=== PATIENT | female | born 1965 | race Hispanic/Latino ===

== ENCOUNTER 2020-02-22 01:00 | Emergency (ER) | payer SELFPAY ==
[~2020-02-22] VITALS: Ht 154.9 cm; Wt 49.9 kg
[2020-02-22] MEDS ORDERED: ASPIRIN 81 MG CHEW TAB PO ONE (01:45)
== END 2020-02-22 01:20 | disposition left against medical advice (07) ==
LOC: ER 01:00
DX: S89.92XA Unspecified injury of left lower leg, initial encounter (principal)

== ENCOUNTER 2020-03-23 20:35 | Emergency (ER) | payer SELFPAY ==
[~2020-03-23] VITALS: Ht 154.9 cm; Wt 49.9 kg
--- OUTSIDE RECORDS SUMMARY | 2020-03-23 20:37 | XMS REPORT ---
Author Author [facility] Organization [facility] Address [address] [place] [address] Phone Unavailable Care Team Providers Care Ground Layer Name Role Phone NO, PCP PCP Unavailable Problems This patient has no known problems. Allergies, Adverse Reactions, Alerts This patient has no known allergies or adverse reactions. Medications This patient has no known medications. Procedures This patient has no known procedures. Encounters Start Date/Time End Date/Time Encounter Type Admission Type Attendi [facility] Care Department Encounter ID Source 2020-02-22 01:00:00 2020-02-22 01:20:00 Departed Emergency Room [facility] [id number] [facility] Results This patient has no known results.
--- NOTE | 2020-03-23 21:10 | Emergency Department Note ---
History of Present Illnes History of Present Illness History of Present Illness This is a 54 year old female presents to the ED after a tree trunk fell directly onto her head. . 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 Any updates have been documented here. Past Medical History Past Medical History: None Past Surgical History: None Social History Smoking Cessation: Current some day smoker Counseling Performed: Yes Alcohol Use: None Any Illegal Drug Use: No Other Last Tetanus: UTD Review of Systems Review of Systems Constitutional: no symptoms EENTM: no symptoms Cardiovascular: no symptoms Respiratory: no symptoms Gastrointestinal: no symptoms Genitourinary: no symptoms Musculoskeletal: no symptoms Neurological: no symptoms Psychological: no symptoms Endocrine: no symptoms Hematological/Lymphatic: no symptoms Review of other systems All other systems reviewed and negative. Physical Exam Related Data Allergies: Coded Allergies: codeine (Verified Allergy, Intermediate, N/V, 03/23/20) Physical Exam CONSTITUTIONAL HENT EYES NECK PULMONARY CARDIOVASCULAR GASTROINTESTINAL GENITOURINARY SKIN Skin: other (4 cm laceration right scalp parietal region) MUSCULOSKELETAL NEUROLOGICAL PSYCHOLOGICAL Results Imaging Imaging results reviewed: Yes Impressions [place] [address] Patient Name: NATALIE SAWANT MR #: [id number] : 1965 Age/Sex: 54/F Req #: [id number] Adm Physician: Ordered by: ZANE BURNS DO Report #: [id number] Location: ER Room/Bed: Procedure: [id number] CT/CT BRAIN WO Exam Date: 03/23/20 Exam Time: 2119 REPORT STATUS: Signed History: Head injury Comparison studies: None Technique: Axial images were obtained from the skull base to the vertex. Coronal and sagittal reconstructions obtained from the axial data. Dose modulation, iterative reconstruction, and/or weight based adjustment of the mA/kV was utilized to reduce the radiation dose to as low as reasonably achievable. Findings: Scalp/skull: Metallic payam at the left frontal scalp with mild soft tissue swelling. No fractures, blastic or lytic lesions. Extra-axial spaces: No masses. No fluid collections. Brain sulci: Appropriate for age. Ventricles: Normal in size and configuration. No hydrocephalus. Parenchyma: No abnormal densities. No masses, hemorrhage, acute or chronic cortical vascular insults. Sellar/suprasellar region: No abnormalities Craniocervical junction: Patent foramen magnum. No Chiari one malformation. IMPRESSION: No intracranial abnormalities Right frontal metallic payam and mild soft tissue swelling. No fractures. Signed by: DR Frederick Kelly M.D. on 03/23/2020 10:06 PM Dictated By: FREDERICK VERA MD 05 Transcribed By: ISRAEL on 03/23/202205 COPY TO: ZANE BURNS DO~ Procedures Laceration Laceration: Laceration 1 Site: scalp Side: right Size (cm): 4 Description: linear Depth: simple, single layer Pre-repair: wound exposed Skin layer closed with: other (payam) Number of sutures: 3 Assessment & Plan Assessment & Plan Final Impression: (1) Laceration of scalp (2) Concussion Assessment & Plan CT reviewed with patient. Plan to discharge to home. Patient instructed to f/u with PCP for staple removal. Depart Disposition: HOME, SELF-CARE Last Vital Signs Date Time Temp Pulse Resp B/P (MAP) Pulse Ox O2 Delivery O2 Flow Rate FiO2 03/23/20 20:56 98.5 85 18 146/84 99 ZANE BURNS DO March 23, 2020 20:38
--- NOTE | 2020-03-23 22:24 | Diagnostic Imaging Report ---
History: Head injury Comparison studies: None Technique: Axial images were obtained from the skull base to the vertex. Coronal and sagittal reconstructions obtained from the axial data. Dose modulation, iterative reconstruction, and/or weight based adjustment of the mA/kV was utilized to reduce the radiation dose to as low as reasonably achievable. Findings: Scalp/skull: Metallic payam at the left frontal scalp with mild soft tissue swelling. No fractures, blastic or lytic lesions. Extra-axial spaces: No masses. No fluid collections. Brain sulci: Appropriate for age. Ventricles: Normal in size and configuration. No hydrocephalus. Parenchyma: No abnormal densities. No masses, hemorrhage, acute or chronic cortical vascular insults. Sellar/suprasellar region: No abnormalities Craniocervical junction: Patent foramen magnum. No Chiari one malformation. IMPRESSION: No intracranial abnormalities Right frontal metallic payam and mild soft tissue swelling. No fractures. Signed by: DR Frederick Kelly M.D. on 03/23/2020 10:06 PM
[2020-03-23 22:31] VITALS: BP 151/94
== END 2020-03-23 22:31 | disposition home or self-care (01) ==
LOC: ER 20:35
DX: S06.0X0A Concussion without loss of consciousness, initial encounter (principal); S01.01XA Laceration without foreign body of scalp, initial encounter; W22.8XXA Striking against or struck by other objects, initial encounter; Y92.008 Other place in unspecified non-institutional (private) residence as the place of occurrence of the external cause; M32.9 Systemic lupus erythematosus, unspecified; F17.210 Nicotine dependence, cigarettes, uncomplicated
CPT/HCPCS: 70450; 99283

== ENCOUNTER 2020-11-06 13:58 | Emergency (ER) | payer SELFPAY ==
[~2020-11-06] VITALS: Ht 154.9 cm; Wt 49.9 kg
== END 2020-11-06 14:47 | disposition home or self-care (01) ==
LOC: ER 14:00
DX: U07.1 COVID-19 (principal); R06.02 Shortness of breath; R11.0 Nausea; R53.83 Other fatigue; M32.9 Systemic lupus erythematosus, unspecified
CPT/HCPCS: 99283